=== PATIENT | female | born 1985 | race Caucasian/White ===

== ENCOUNTER 2017-06-27 22:41 | Emergency (ER) | payer MEDICAID ==
[~2017-06-27 22:41] MED LIST: DEXILANT60 MG PO; NORCO 7.5/325 T1 TA1 PO; ZOLOFT100 MG PO
== END 2017-06-27 23:35 | disposition home or self-care (01) ==
LOC: D.ER 22:41
DX: M51.34 Other intervertebral disc degeneration, thoracic region (principal); M62.830 Muscle spasm of back; M54.6 Pain in thoracic spine; F17.200 Nicotine dependence, unspecified, uncomplicated

== ENCOUNTER 2018-12-23 16:50 | Emergency (ER) | payer MEDICAID ==
[~2018-12-23] VITALS: Ht 162.6 cm; Wt 88.6 kg
[2018-12-23 16:52] VITALS: Ht 162.6 cm; Wt 88.6 kg
[2018-12-23] MEDS ORDERED: NEURONTIN600 MG PO (16:54)
[2018-12-23] MEDS ORDERED: ROBAXIN500 MG PO (16:55)
[2018-12-23] MEDS ORDERED: CYCLOBENZAPRINE10 MG PO (18:12)
[2018-12-23] MEDS ORDERED: EC-NAPROSYN500 MG PO (18:12)
[2018-12-23 18:28] VITALS: BP 135/84
== END 2018-12-23 18:29 | disposition home or self-care (01) ==
LOC: D.ER 16:50
DX: S63.501A Unspecified sprain of right wrist, initial encounter (principal); W18.30XA Fall on same level, unspecified, initial encounter; Y93.89 Activity, other specified; Y92.89 Other specified places as the place of occurrence of the external cause; S93.602A Unspecified sprain of left foot, initial encounter

== ENCOUNTER 2019-02-16 21:19 | Emergency (ER) | payer MEDICAID ==
[~2019-02-16] VITALS: Ht 162.6 cm; Wt 88.2 kg
[~2019-02-16 21:19] MED LIST changes: +CYCLOBENZAPRINE10 MG PO; +EC-NAPROSYN500 MG PO; +NEURONTIN600 MG PO; +ROBAXIN500 MG PO
[2019-02-16 21:33] VITALS: Ht 162.6 cm; Wt 88.2 kg
[2019-02-16] MEDS ORDERED: HYDROCODON-ACE1 EAC7 PO (21:36)
[2019-02-16] MEDS ORDERED: ADIPEX-P37.5 MG PO (21:37)
[2019-02-16 22:01] LABS: BASOPHILS 0.1 % (0-2); EOSINOPHILS 0.4 % (0-7); HEMATOCRIT 42.8 % (36.0-48.0); HEMOGLOBIN 15.7 g/dL (12-16); IMMATURE GRANULOCYTES 0.4 % (0-5); MCH 32.1 pg (26.0-34.0); MCHC 36.7 g/dL (31.0-37.0); MCV 87.5 fL (80.0-100.0); MEAN PLATELET VOLUME 10.1 fL (7.4-10.4); NEUTROPHILS 69.1 % (40-80); RBC 4.89 10x6/uL (4.00-5.40); RDW 12.7 % (11.5-14.5); WBC 17.8 10x3/uL (4.8-10.8)
[2019-02-16 22:12] LABS: PLATELET COUNT 235 10x3/uL (130-400)
[2019-02-16 22:14] LABS: APPEARANCE CLEAR (CLEAR); BILIRUBIN NEGATIVE (NEGATIVE); COLOR YELLOW (YELLOW); GLUCOSE NEGATIVE (NEGATIVE); KETONE NEGATIVE (NEGATIVE); NITRITE NEGATIVE (NEGATIVE); PROTEIN NEGATIVE (NEGATIVE); UROBILINOGEN NORMAL (NORMAL)
[2019-02-16 22:17] LABS: HCG URINE NEGATIVE (NEGATIVE)
[2019-02-16 22:21] LABS: ALBUMIN 3.8 g/dL (3.4-5.0); ALKALINE PHOSPHATASE 78 U/L (46-116); ALT (SGPT) 32 U/L (10-68); BILIRUBIN - TOTAL 0.56 mg/dL (0.2-1.3); CALC OSMOLALITY 282 mosm/kg (275-300); CALCIUM 8.9 mg/dL (8.5-10.1); CHLORIDE - SERUM 104 mmol/L (98-107); CREATININE - SERUM 0.9 mg/dL (0.6-1.3); GLUCOSE 96 mg/dL (74-106); POTASSIUM - SERUM 3.7 mmol/L (3.5-5.1); PROTEIN - SERUM 6.6 g/dL (6.4-8.2); SODIUM 141 mmol/L (136-145); UREA NITROGEN 17 mg/dL (7-18); eGFR NON AFRICAN AMERICAN 75 mL/min (90-120)
[2019-02-16] MEDS ORDERED: VALIUM 2 MG TAB2 MG PO (23:52)
[2019-02-16] MEDS ORDERED: FLAGYL500 MG PO (23:52)
[2019-02-16] MEDS ORDERED: EC-NAPROSYN500 MG PO (23:52)
[2019-02-17 01:03] VITALS: BP 134/83
== END 2019-02-17 01:03 | disposition home or self-care (01) ==
LOC: D.ER 21:19
PROVIDERS: Family Medicine
DX: N83.202 Unspecified ovarian cyst, left side (principal); N76.0 Acute vaginitis; B96.89 Other specified bacterial agents as the cause of diseases classified elsewhere

== ENCOUNTER 2020-10-21 22:09 | Emergency (ER) | payer BC ==
[~2020-10-21] VITALS: Ht 162.6 cm; Wt 84.1 kg
[~2020-10-21 22:09] MED LIST changes: +ADIPEX-P37.5 MG PO; +FLAGYL500 MG PO; +HYDROCODON-ACE1 EAC7 PO; +VALIUM 2 MG TAB2 MG PO
[2020-10-21 22:14] VITALS: BP 157/84; Ht 162.6 cm; Wt 84.1 kg
== END 2020-10-21 22:58 | disposition home or self-care (01) ==
LOC: D.ER 22:09
DX: S60.222A Contusion of left hand, initial encounter (principal); W23.0XXA Caught, crushed, jammed, or pinched between moving objects, initial encounter; Y93.9 Activity, unspecified; Y92.9 Unspecified place or not applicable